=== PATIENT | female | born 1935 | race Caucasian/White ===

== ENCOUNTER 2017-09-28 08:42 | Outpatient (CLI) | payer MEDICARE, BC ==
--- NOTE | 2017-09-29 11:44 | RAD ---
MODIFIED BARIUM SWALLOW: Date: 09/28/17 HISTORY: Dysphagia, unspecified, R13.10. Feeding difficulties, R63.3. TECHNIQUE/FINDINGS: Examination was performed by the speech pathologist. The radiologist was not present. There is aspira tion, silent, with thin contrast by straw. There is silent penetration with thin contrast by straw. O ropharyngeal phase mildly impaired. Mastication prolonged. Dose: 0.62921 mGy*cm^2. IMPRESSION: Fluoroscopy from the speech pathologist. Please see speech pathology report for details. POS: [facility]
== END 2017-09-28 08:43 | disposition home or self-care (01) ==
PROVIDERS: ATTEND Internal Medicine
DX: R13.10 Dysphagia, unspecified (principal); R63.3 Feeding difficulties
CPT/HCPCS: 74230; G8996-GN-CJ; G8997-GN-CJ; G8998-GN-CJ

== ENCOUNTER 2020-10-08 14:54 | Inpatient (IN) | payer MEDICARE, BC ==
[2020-10-08] MEDS ORDERED: Ondansetron PF 4 MG/2 ML Vial IVP PRN (20:45)
[2020-10-08] MEDS ORDERED: Lactated Ringer's 1,000 ML IV SCH (20:45)
[2020-10-08] MEDS ORDERED: Acetaminophen 325 MG TAB PO PRN (20:45)
[2020-10-08] MEDS ORDERED: Ondansetron ODT 4 MG TAB SL PRN (20:45)
[2020-10-08 21:29] VITALS: BMI 29.2
[2020-10-08] MEDS ORDERED: Morphine 4 MG/ML VIAL SLOW IVP SCH (22:30)
[2020-10-09] MEDS ORDERED: HYDROcodone/Acetaminophen 5/325 mg Tablet PO PRN (00:22)
[2020-10-09] MEDS: Lactated Ringer's 1,000 ML IV SCH ×2 (00:31→05:40)
[2020-10-09] MEDS ORDERED: Morphine 4 MG/ML VIAL SLOW IVP PRN (03:05)
[2020-10-09] MEDS ORDERED: Ketorolac Tromethamine 30 MG/ML VIAL IVP PRN (03:06)
[2020-10-09 06:15] LABS: #Eosinphils 0.1 thou/uL (0.0-0.7); #Lymphocytes 1.6 thou/uL (1.20-3.40); #Monocytes 0.9 thou/uL (0.11-0.59); #Neutrophils 7.5 thou/uL (1.40-6.50); %Basophils 0.2 % (0.0-1.0); %Eosinophils 0.9 % (0.0-10.0); %Lymphocytes 16.1 % (21.0-51.0); %Monocytes 8.9 % (0.0-10.0); %Neutrophils 73.9 % (42.0-75.0); Hemoglobin 11.8 g/dL (12.0-16.0); Mean Corpuscular Hemoglobin 31.7 pg (27.0-31.0); Mean Corpuscular Volume 93.4 fL (78.0-98.0); Mean Platelet Volume 6.8 fL (7.4-10.4); Platelet Count 256 thou/uL (130-400); RBC Distribution Width 11.7 % (11.5-14.5); Red Blood Cell (RBC) Count 3.72 mill/uL (4.20-5.40); White Blood Cell (WBC) Count 10.2 thou/uL (4.8-10.8)
[2020-10-09 06:31] LABS: Anion Gap 9 mmol/L (10-20); BUN (Urea Nitrogen) 13 mg/dL (9.8-20.1); Calc. Creatinine Clearance 66 mL/min (70-130); Calcium 8.7 mg/dL (7.8-10.44); Carbon Dioxide 29 mmol/L (23-31); Chloride 95 mmol/L (98-107); Glucose 121 mg/dL (83-110); Potassium 3.4 mmol/L (3.5-5.1); Sodium 130 mmol/L (136-145)
[2020-10-09] MEDS ORDERED: Artificial Tear Sol 15 ML BOT EA EYE PRN (07:43)
[2020-10-09] MEDS ORDERED: Loratadine 10 MG TAB PO PRN (07:43)
[2020-10-09] MEDS ORDERED: Cepastat Lozenges 1 LOZ PO PRN (07:43)
[2020-10-09] MEDS ORDERED: Ondansetron ODT 4 MG TAB PO PRN (07:43)
[2020-10-09] MEDS ORDERED: Sodium Chloride 0.65% Nasal 44 ML BOT EA NARE PRN (07:43)
[2020-10-09] MEDS ORDERED: Loperamide HCl 2 MG CAP PO PRN (07:43)
[2020-10-09] MEDS ORDERED: Senokot S 8.6-50 MG TAB PO PRN (07:43)
[2020-10-09] MEDS ORDERED: Bisacodyl 5 MG TAB PO PRN (07:43)
[2020-10-09] MEDS ORDERED: GUAIFENESIN SF SOLN 200 MG/10 ML UDCUP PO PRN (07:43)
[2020-10-09] MEDS ORDERED: Hydrocerin (Eucerin) Cream 120 gm Jar TOP PRN (07:43)
[2020-10-09] MEDS ORDERED: Ondansetron PF 4 MG/2 ML Vial IVP PRN (07:43)
[2020-10-09] MEDS ORDERED: hydrALAZINE 20 MG/ML VIAL SLOW IVP PRN (07:43)
[2020-10-09] MEDS ORDERED: Calcium Carbonate 500 MG ChewTAB PO PRN (07:43)
[2020-10-09] MEDS: Enoxaparin Sodium 40 MG/0.4 ML SYRINGE SC SCH (07:52)
[2020-10-09] MEDS: Pantoprazole 40 MG VIAL IVP SCH (08:16)
[2020-10-09] MEDS: NS 0.9% w/ 20 MEQ KCL 1,000 ML/1,000 ML BAG IV SCH ×2 (08:16→16:28)
[2020-10-10] MEDS: NS 0.9% w/ 20 MEQ KCL 1,000 ML/1,000 ML BAG IV SCH ×4 (00:40→22:20)
[2020-10-10 06:19] LABS: #Eosinphils 0.1 thou/uL (0.0-0.7); #Lymphocytes 1.4 thou/uL (1.20-3.40); #Monocytes 0.7 thou/uL (0.11-0.59); #Neutrophils 4.9 thou/uL (1.40-6.50); %Basophils 0.5 % (0.0-1.0); %Eosinophils 1.7 % (0.0-10.0); %Lymphocytes 19.8 % (21.0-51.0); %Monocytes 10.1 % (0.0-10.0); %Neutrophils 67.9 % (42.0-75.0); Hemoglobin 13.7 g/dL (12.0-16.0); Mean Corpuscular Hemoglobin 31.8 pg (27.0-31.0); Mean Corpuscular Volume 93.5 fL (78.0-98.0); Mean Platelet Volume 6.7 fL (7.4-10.4); Platelet Count 270 thou/uL (130-400); RBC Distribution Width 11.7 % (11.5-14.5); White Blood Cell (WBC) Count 7.2 thou/uL (4.8-10.8)
[2020-10-10 06:43] LABS: ALT (SGPT) 20 U/L (8-55); AST (SGOT) 38 U/L (5-34); Albumin 3.5 g/dL (3.4-4.8); Alkaline Phosphatase 54 U/L (40-110); Anion Gap 9 mmol/L (10-20); BUN (Urea Nitrogen) 8 mg/dL (9.8-20.1); Bilirubin, Total 0.6 mg/dL (0.2-1.2); CRP (Inflammatory) 2.63 mg/dL (= or < 0.5); Calc. Creatinine Clearance 64 mL/min (70-130); Calcium 9.2 mg/dL (7.8-10.44); Carbon Dioxide 30 mmol/L (23-31); Cardiac Risk 4.1 (Less than 4.5); Chloride 97 mmol/L (98-107); Cholesterol 164 mg/dl (< 200 Desired); Globulin 3.8 g/dL (2.4-3.5); Glucose 124 mg/dL (83-110); HDL Cholesterol 40 mg/dL (>60 Neg Risk); LDL Cholesterol, Calculated 99 mg/dL; Lipase 190 U/L (8-78); Magnesium 1.4 mg/dL (1.6-2.6); Phosphorus 2.4 mg/dL (2.3-4.7); Potassium 3.9 mmol/L (3.5-5.1); Protein, Total 7.3 g/dL (5.8-8.1); Sodium 132 mmol/L (136-145); Triglycerides 125 mg/dL (Less than 150)
[2020-10-10] MEDS: Enoxaparin Sodium 40 MG/0.4 ML SYRINGE SC SCH (08:45)
[2020-10-10] MEDS: Pantoprazole 40 MG VIAL IVP SCH (08:46)
[2020-10-11 06:23] LABS: Cardiac Risk 4.4 (Less than 4.5)
[2020-10-11] MEDS: NS 0.9% w/ 20 MEQ KCL 1,000 ML/1,000 ML BAG IV SCH ×2 (07:07→17:18)
[2020-10-11] MEDS: Enoxaparin Sodium 40 MG/0.4 ML SYRINGE SC SCH (09:29)
[2020-10-11] MEDS: Pantoprazole 40 MG VIAL IVP SCH (09:29)
[2020-10-11 11:45] VITALS: TEMP 98.1
[2020-10-11 15:59] VITALS: BP 143/72
[2020-10-12] MEDS ORDERED: Amlodipine 5 MG TAB PO SCH (09:00)
== END 2020-10-11 16:55 | disposition home or self-care (01) | DRG 439 ==
LOC: SJJU 20:37 → OBSVTOIN 10-09 00:22
PROVIDERS: ADMIT Internal Medicine; ATTEND Internal Medicine
DX: K85.90 Acute pancreatitis without necrosis or infection, unspecified (principal); E87.1 Hypo-osmolality and hyponatremia; Z20.822 Contact with and (suspected) exposure to COVID-19; E87.6 Hypokalemia; I10 Essential (primary) hypertension; Z96.659 Presence of unspecified artificial knee joint; Z90.49 Acquired absence of other specified parts of digestive tract; Z79.899 Other long term (current) drug therapy
CPT/HCPCS: 36415; 80048; 80053; 80061; 83690; 83735; 84100; 85025; 86140; C9113; J1650; J1885; J2270; J3480